=== PATIENT | female | born 1955 | race Native Hawaiian/Other Pacific Islander ===

== ENCOUNTER 2017-01-01 08:03 | Outpatient (CLI) | payer BC | END 2017-01-01 19:05 | disposition home or self-care (01) | LOC: MAMMO 08:03 | DX: Z12.31 Encounter for screening mammogram for malignant neoplasm of breast (principal) ==

== ENCOUNTER 2018-04-01 08:14 | Outpatient (CLI) | payer OTHER | END 2018-04-01 20:27 | disposition home or self-care (01) | LOC: MAMMO 08:14 | DX: Z12.31 Encounter for screening mammogram for malignant neoplasm of breast (principal) ==

== ENCOUNTER 2020-05-09 14:09 | Outpatient (CLI) | payer OTHER | END 2020-05-09 22:08 | disposition home or self-care (01) | LOC: INF 14:09 | PROVIDERS: ATTEND Internal Medicine | DX: Z23 Encounter for immunization (principal) | CPT/HCPCS: 96372 ==

== ENCOUNTER 2020-05-31 15:53 | Outpatient (CLI) | payer OTHER | END 2020-05-31 22:04 | disposition home or self-care (01) | LOC: INF 15:53 | PROVIDERS: ATTEND Internal Medicine | DX: Z23 Encounter for immunization (principal) | CPT/HCPCS: 96372 ==

== ENCOUNTER 2020-07-17 12:53 | Outpatient (CLI) | payer OTHER | END 2020-07-17 22:21 | disposition home or self-care (01) | LOC: US 12:53 | PROVIDERS: ATTEND Internal Medicine | DX: M79.604 Pain in right leg (principal) ==

== ENCOUNTER 2021-11-18 08:44 | Outpatient (CLI) | payer OTHER | END 2021-11-18 20:38 | disposition home or self-care (01) | LOC: MAMMO 08:44 | PROVIDERS: ATTEND Specialist | DX: M19.90 Unspecified osteoarthritis, unspecified site (principal); N95.8 Other specified menopausal and perimenopausal disorders; Z12.31 Encounter for screening mammogram for malignant neoplasm of breast ==